=== PATIENT | female | born 1995 | race Caucasian/White ===

== ENCOUNTER 2016-10-18 12:56 | Emergency (ER) | payer MEDICAID ==
[2016-10-18] MEDS ORDERED: ONDANSETRON 4 MG VIAL ONE (14:54)
[2016-10-18] MEDS ORDERED: MORPHINE 4 MG/ML SYR ONE (14:55)
== END 2016-10-18 17:19 | disposition home or self-care (01) ==
LOC: ER 12:56
DX: R10.31 Right lower quadrant pain (principal); R31.29 Other microscopic hematuria; N83.292 Other ovarian cyst, left side
CPT/HCPCS: 36415; 74176; 76830; 80053; 81001; 84703; 85025; 96374; 96375